=== PATIENT | male | born 1955 | race Hispanic/Latino ===

== ENCOUNTER 2019-12-11 12:49 | Day surgery (SDC) | payer OTHER ==
[2019-12-11] MEDS ORDERED: ceFAZolin/Water 2 GM/20 ML 2 GM/20 ML SYRINGE IV NR (14:00)
[2019-12-11] MEDS ORDERED: LACTATED RINGERS 1,000 ML IV SCH (14:00)
[2019-12-11] MEDS ORDERED: HYDROmorphone 1 MG/1 ML INJ IV PRN (14:20)
--- NOTE | 2019-12-11 14:23 | Anesthesia Day of Surgery ---
Anesthesia Day of Surgery - Day of Surgery Patient Examined: Yes Patient H&P Reviewed: Yes Patient is NPO: Yes Beta Blockers: Yes (12/10/19 PM)
--- NOTE | 2019-12-11 14:23 | Anesthesia Consultation ---
Anesthesia Consult and Med Hx Date of service: 12/11/19 - Airway Anesthetic Teeth Evaluation: Good ROM Head & Neck: Adequate (pinched nerve in neck which causes parasthesias in b/l arms w/ moderate extension.) Mental/Hyoid Distance: Adequate Mallampati Class: Class II Intubation Access Assessment: Probably Good - Pulmonary Exam CTA: Yes - Cardiac Exam Cardiac Exam: RRR - Pre-Operative Health Status ASA Pre-Surgery Classification: ASA3 Proposed Anesthetic Plan: General - Pulmonary Hx Smoking: Yes (former heavy smoker 3-4PPD. Quit >30yrs ago) Hx Respiratory Symptoms: Yes (COVID infection 04/2019 still w/ residual nonproductive cough.) SOB: No Home Oxygen Therapy: No - Cardiovascular System Hx Hypertension: No Hx Heart Attack/AMI: No Hx Percutaneous Transluminal Coronary Angioplasty (PTCA): No Hx Cardia Arrhythmia: No - Central Nervous System Hx Neuromuscular Disorder: Yes (paraplegia @ T12/L1.) CVA: No - Gastrointestinal Hx Gastroesophageal Reflux Disease: No - Endocrine Hx Renal Disease: No (renal stones) Hx Liver Disease: No Hx Insulin Dependent Diabetes: No Hx Non-Insulin Dependent Diabetes: No Hx Thyroid Disease: No - Other Systems Hx Obesity: No - Additional Comments Anesthesia Medical History Comments: No hx anesthetic complications.
[2019-12-11] MEDS ORDERED: MIDAZOLAM 2 MG/2 ML INJ IV NR (15:00)
[2019-12-11] MEDS ORDERED: LIDOCAINE MPF (2%) 20 MG/1 ML VIAL 5 ML ONE (15:56)
[2019-12-11] MEDS ORDERED: ONDANSETRON 4 MG/2 ML INJ ONE (15:56)
[2019-12-11] MEDS ORDERED: propofoL 200 MG/20 ML VIAL IV ONE (15:57)
[2019-12-11] MEDS ORDERED: fentaNYL 100 MCG/2 ML INJ ONE (15:57)
--- NOTE | 2019-12-11 16:04 | Post Operative Note ---
Date of procedure: 12/11/19 Pre-op diagnosis: florentinthongcrhistie hinson Post-op diagnosis: same (up j stone) Findings: as above Procedure: cysto laser bladder stent rpg Anesthesia: GETA Surgeon: JOSEFINA BOWEN Estimated blood loss: none Pathology: list (stones) Specimen disposition: given to patient/family Condition: stable Disposition: PACU
--- NOTE | 2019-12-11 16:05 | Discharge Summary ---
Short Stay Discharge Plan Activity: other (no straining ) Weight Bearing Status: Non-Weight Bearing Diet: low fat, low cholesterol, low salt Special Instructions: other (inc fluids ) Durable Medical Equipment Needed Upon Discharge: other (has beasley and stent ) Follow up with: [facility] [Primary Care Provider] - 7 Days JOSEFINA BOWEN MD [Staff Physician] - 7 Days
[2019-12-11] MEDS ORDERED: dexAMETHasone 20 MG/5 ML VIAL ONE (16:30)
[2019-12-11] MEDS ORDERED: PHENYLEPHRINE/NS 1,000 MCG/10 ML SYRINGE (OR USE) IV ONE (16:43)
--- NOTE | 2019-12-11 16:53 | Operative Report ---
PREOPERATIVE DIAGNOSES: Severe right hydronephrosis, right ureteropelvic junction stone, bladder stone. POSTOPERATIVE DIAGNOSES: Severe right hydronephrosis, right ureteropelvic junction stone, bladder stone. PROCEDURES: Cystoscopy, right retrograde, right double-J stent, cystolithopaxy with laser of bladder stone and insertion of [place] catheter. SURGEON: Dr. Giron. ANESTHESIA: General. FINDINGS: This is a gentleman with intermittent cath neurogenic bladder from spinal cord injury and paraplegia. He presents with increasing creatinine and evidence of stones. He has a severe obstruction on the right and bladder stones. DESCRIPTION OF PROCEDURE: The patient was brought to the operating room and placed on the operating table. Following induction of anesthesia, placed in lithotomy position, prepped and draped in usual sterile fashion. Retrograde showed the stone and we were able to get by the stone and placed a double-J stent. At this point, bladder stones were lasered and we evacuated all the fragments. The patient tolerated the procedure well and was brought to recovery room in stable condition and will be discharged on antibiotics. Follow up lithotripsy nuclear renal scan. JOB# [id number] BARBARA/ALISA
[2019-12-11] MEDS ORDERED: WATER FOR IRRIG STERILE 1,500 ML BOTTLE IR ONE (17:12)
[2019-12-11] MEDS ORDERED: WATER FOR IRRIG STERILE 2000 ML IR ONE (17:12)
--- NOTE | 2019-12-11 17:49 | Post Anesthesia Evaluation ---
- Post Anesthesia Evaluation Patient Participated: Yes Airway Patent: Yes Stable Respiratory Function: Yes Nausea/Vomiting: No Temp > 96.8F: Yes Pain Manageable: Yes Adequeate Hydration: Yes Anesthesia Complications: No
--- NOTE | 2019-12-11 18:07 | Fluoroscopy Report ---
CLINICAL INDICATION: BLADDER AND RIGHT KIDNEY STONES. TECHNICAL DATA: C-arm imaging was performed. Fluoroscopy time 1.03 minutes. 3 images obtained. FINDINGS: C-arm imaging was performed. Filling defects present right ureter secondary to a calculus on the retr ograde pyelogram. Final images demonstrate a double pigtail stent present right ureter. IMPRESSION: Stent placement right ureter Signer Name: Arsh Chiu MD Signed: 12/11/2019 6:02 PM Workstation Name: [id number]
[2019-12-11 18:51] VITALS: BP 126/67
== END 2019-12-11 18:34 | disposition home or self-care (01) ==
LOC: OR 12:49
PROVIDERS: ATTEND Urology
DX: N13.30 Unspecified hydronephrosis (principal); N21.0 Calculus in bladder; Z88.8 Allergy status to other drugs, medicaments and biological substances; Z79.899 Other long term (current) drug therapy; Z87.891 Personal history of nicotine dependence; Z98.890 Other specified postprocedural states
CPT/HCPCS: 52317; 52332; 74420; A4217; C1758; C1769; C2617; J1100; J1956; J2370; J2405; J2704; J3010; J7120; Q9967; J2250

== ENCOUNTER 2019-12-25 07:59 | Day surgery (SDC) | payer OTHER ==
--- NOTE | 2019-12-25 08:47 | Anesthesia Day of Surgery ---
Anesthesia Day of Surgery - Day of Surgery Patient Examined: Yes Patient H&P Reviewed: Yes Patient is NPO: Yes
--- NOTE | 2019-12-25 08:49 | Anesthesia Consultation ---
Anesthesia Consult and Med Hx Date of service: 12/25/19 - Airway Anesthetic Teeth Evaluation: Caps, Crowns ROM Head & Neck: Adequate Mental/Hyoid Distance: Adequate Mallampati Class: Class II Intubation Access Assessment: Probably Good - Pre-Operative Health Status ASA Pre-Surgery Classification: ASA3 Proposed Anesthetic Plan: General - Pulmonary Hx Smoking: Yes (former heavy smoker 3-4PPD. Quit >30yrs ago) Hx Asthma: No Hx Respiratory Symptoms: Yes (COVID infection 04/2019) SOB: No (Wheel chair bound) COPD: No Hx Pneumonia: No Hx Sleep Apnea: No (MAURI PRE SCREEN HIGH RISK) - Cardiovascular System Hx Hypertension: Yes Hx Heart Attack/AMI: No Hx Percutaneous Transluminal Coronary Angioplasty (PTCA): No Hx Cardia Arrhythmia: No Hx Pacemaker: No Hx Internal Defibrillator: No Hx Heart Murmur: No - Central Nervous System Hx Neuromuscular Disorder: Yes (paraplegia @ T12/L1.) Hx Seizures: No CVA: No Hx Back Pain: Yes (NECK STIFFNESS. Chronic pain ) Hx Psychiatric Problems: Yes - Gastrointestinal Hx Gastroesophageal Reflux Disease: Yes (occasional) - Endocrine Hx Renal Disease: Yes (renal stones) Hx End Stage Renal Disease: No Hx Cirrhosis: No Hx Liver Disease: No Hx Insulin Dependent Diabetes: No Hx Non-Insulin Dependent Diabetes: No Hx Thyroid Disease: No - Hematic Hx Anemia: Yes Hx Sickle Cell Disease: No - Other Systems Hx Alcohol Use: Yes (BEER,LIQUOR SHOT EACH NITE) Hx Substance Use: No Hx Cancer: No Hx Obesity: Yes
[2019-12-25] MEDS ORDERED: MORPHINE 2 MG/1 ML INJ IV SCH (09:00)
[2019-12-25] MEDS ORDERED: HYDROmorphone 1 MG/1 ML INJ IV PRN ×2 (09:00)
[2019-12-25] MEDS ORDERED: ONDANSETRON 4 MG/2 ML INJ IV PRN (09:00)
[2019-12-25] MEDS ORDERED: LACTATED RINGERS 1,000 ML IV SCH (09:00)
[2019-12-25] MEDS ORDERED: MIDAZOLAM 2 MG/2 ML INJ IV NR (09:00)
[2019-12-25] MEDS ORDERED: LIDOCAINE MPF (2%) 20 MG/1 ML VIAL 5 ML ONE (09:46)
[2019-12-25] MEDS ORDERED: ONDANSETRON 4 MG/2 ML INJ ONE (09:46)
[2019-12-25] MEDS ORDERED: fentaNYL 100 MCG/2 ML INJ ONE (09:47)
[2019-12-25] MEDS ORDERED: propofoL 200 MG/20 ML VIAL IV ONE (09:47)
[2019-12-25] MEDS ORDERED: ceFAZolin/STERILE WATER 2 GM/20 ML SYRINGE IV NR (10:00)
--- NOTE | 2019-12-25 10:06 | XRay Report ---
ABDOMEN 1 VIEW INDICATION / CLINICAL INFORMATION: BILATERAL KIDNEY STONES. COMPARISON: Fluoroscopic exam from 12/11/2019. FINDINGS: TUBES / LINES: Partially imaged right double-J ureteral stent projects in expected alignment. BOWEL GAS PATTERN: No significant abnormality. FREE AIR / EXTRALUMINAL GAS: None seen. ADDITIONAL FINDINGS: Lower pole left renal calculi. There are 2 additional calculi projecting along t he course of the right double-J ureteral stent, measuring up to 1 cm. Additional 5 calcification whic h projects along the course of the right ureter is noted to project lateral to the ureter on recent u rography study. Fixation rods in the spine without hardware complication. IMPRESSION: 1. 2 retained stones along the proximal portion of the right ureteral stent. 2. Left nephrolithiasis. No left-sided ureteral calculus identified. Signer Name: Rodriguez Fam MD Signed: 12/25/2019 10:01 AM Workstation Name: [id number]
--- NOTE | 2019-12-25 12:32 | Discharge Summary ---
Short Stay Discharge Plan Activity: other (no straining ) Weight Bearing Status: Full Weight Bearing Diet: regular Special Instructions: other (inc fluids ) Additional Instructions: INCREASE ORAL FLUIDS. AVOID STRAINING. STRAIN URINE. CALL FOR F/U APPT. Follow up with: [facility] [Primary Care Provider] - 7 Days JOSEFINA BOWEN MD [Staff Physician] - 7 Days Forms: Outpatient Surgery DC Inst.
--- NOTE | 2019-12-25 12:33 | Post Operative Note ---
Date of procedure: 12/25/19 Pre-op diagnosis: ureteral stone Post-op diagnosis: same Findings: as above Procedure: eswl Anesthesia: NIRAV Surgeon: JOSEFINA BOWEN Estimated blood loss: none Pathology: none Condition: stable Disposition: PACU
[2019-12-25 12:44] VITALS: BP 133/63
--- NOTE | 2019-12-25 14:45 | Operative Report ---
PREOPERATIVE DIAGNOSIS: Right upper ureteral stone. POSTOPERATIVE DIAGNOSIS: Right upper ureteral stone. PROCEDURE: Right lithotripsy. SURGEON: Dr. Giron. ANESTHESIA: General. FINDINGS: This is a gentleman who came in with a severe obstruction. Stent was placed. There was some debris and we just left the stent to let this calmed down. He has significant neurological issues with atonic bladder, now presents for lithotripsy. DESCRIPTION OF PROCEDURE: The patient was brought to the operating room and placed on the operating table. Following induction of anesthesia, the stone was easily localized along the stent. Shocks were begun at 1 kV just because there was a little bit of question whether the lower pole was in the shockwave path. We did a renal pause. We went up to 9 kV. There was some spreading out of the stone. The patient tolerated the procedure well. Total of 2500 shocks were given, brought to recovery in stable condition. JOB# [id number] BARBARA/ALISA
--- NOTE | 2019-12-25 16:01 | Post Anesthesia Evaluation ---
- Post Anesthesia Evaluation Patient Participated: Yes Airway Patent: Yes Stable Respiratory Function: Yes Nausea/Vomiting: No Temp > 96.8F: Yes Pain Manageable: Yes Adequeate Hydration: Yes Anesthesia Complications: No Block Receding Appropriately: Not Applicable Patient on Ventilator: No
== END 2019-12-25 13:15 | disposition home or self-care (01) ==
LOC: OR 07:59
PROVIDERS: ATTEND Urology
DX: N20.1 Calculus of ureter (principal); E78.00 Pure hypercholesterolemia, unspecified; I10 Essential (primary) hypertension; K21.9 Gastro-esophageal reflux disease without esophagitis; E66.9 Obesity, unspecified; M19.90 Unspecified osteoarthritis, unspecified site; F32.9 Major depressive disorder, single episode, unspecified; Z72.89 Other problems related to lifestyle; Z98.890 Other specified postprocedural states; Z87.891 Personal history of nicotine dependence; Z88.8 Allergy status to other drugs, medicaments and biological substances; Z79.899 Other long term (current) drug therapy; Z87.440 Personal history of urinary (tract) infections; Z68.21 Body mass index [BMI] 21.0-21.9, adult
CPT/HCPCS: 50590; 74018; J0690; J2250; J2270; J2405; J2704; J3010; J7120

== ENCOUNTER 2020-02-23 08:16 | Outpatient (CLI) | payer OTHER ==
[2020-02-23] MEDS ORDERED: FUROSEMIDE 20 MG/2 ML INJ ONE (08:46)
[2020-02-23] MEDS ORDERED: FUROSEMIDE 100 MG/10 ML INJ IV ONE (08:52)
[2020-02-23] MEDS ORDERED: FUROSEMIDE 20 MG/2 ML INJ IV ONE (09:00)
--- NOTE | 2020-02-23 10:19 | Nuclear Medicine Report ---
KIDNEY IMAGING MORPHOLOGY WITH VASCULAR FLOW AND FUNCTION, SINGLE STUDY WITH LASIX HISTORY: Hydronephrosis with renal and ureteral calculus COMPARISON: KUB dated 12/25/2019 TECHNIQUE: Following IV administration of Tc-99m-MAG3, sequential dynamic images of the kidneys were obtained in the posterior projection for 30 minutes. Following IV administration of Lasix, additiona l images were acquired for 20 minutes. Time activity whole kidney curves were analyzed. RADIOPHARMACEUTICAL: 5 mCi of Tc-99m-MAG3 MEDICATION: Lasix 20 mg iv at 21 minutes. FINDINGS: There is homogeneous distribution of the radiopharmaceutical within the renal cortex of each kidney. The right kidney appears slightly smaller than the left kidney with delayed uptake and delayed excret ion of the radiotracer compared to the left side. DIFFERENTIAL FUNCTION: Right: 23% Left: 77% RIGHT: Ywyd-wx-brnz activity: 25 minutes, prolonged T1/2: Out of range minutes, prolonged Ureter: No significantly abnormal activity. Normal caliber. Post-Lasix imaging: There is a blunted excretory response to Lasix. LEFT: Ajgm-ol-bgqk activity: 4 minutes, normal T1/2: 33 minutes, normal Ureter: No significantly abnormal activity. Normal caliber. Post-Lasix imaging: No significant abnormality in urinary excretion. Additional Findings: None. IMPRESSION: Split function is 77% left kidney and 23% right kidney. Delayed uptake and delayed excretion of the radiotracer on the right side is noted with a blunted res ponse to Lasix administration. Signer Name: Seng Burciaga Jr, MD Signed: 02/23/2020 10:15 AM Workstation Name: [id number]
--- NOTE | 2020-02-23 11:08 | XRay Report ---
ABDOMEN 1 VIEW INDICATION / CLINICAL INFORMATION: HYDRONEPHROSIS W/RENAL AND URETERAL CALCULOUS. COMPARISON: 12/25/2019. FINDINGS: TUBES / LINES: Right-sided JJ ureteral stent in stable position. BOWEL GAS PATTERN: No significant abnormality. FREE AIR / EXTRALUMINAL GAS: None seen. ADDITIONAL FINDINGS: 1.2 cm left renal calculus stable since prior exam. There has been significant d ecrease in size of the previously noted calcified stones along the ureteral stent in the proximal ure ter (previously 7 and 8 mm respectively) now both measuring approximately 3 mm. There is now a 7 mm s tone in the right pelvicalyceal system. Spinal hardware is stable. IMPRESSION: 1. Right JJ ureteral stent in stable position. 2. Bilateral calcified stone burden as described above. Signer Name: Rey Kirkland MD Signed: 02/23/2020 11:03 AM Workstation Name: [id number]
== END 2020-02-23 08:17 | disposition home or self-care (01) ==
LOC: NM 08:16
PROVIDERS: ATTEND Urology
DX: N13.2 Hydronephrosis with renal and ureteral calculous obstruction (principal)
CPT/HCPCS: 74018; 78708; 96374; A9562; J1940

== ENCOUNTER 2020-03-22 06:32 | Day surgery (SDC) | payer OTHER ==
[~2020-03-22 06:32] MED LIST: LACTATED RINGERS 1,000 ML IV SCH; MIDAZOLAM 2 MG/2 ML INJ IV NR
[2020-03-22] MEDS ORDERED: BACTERIOSTATIC SODIUM CHLORIDE 0.9% 30 ML VIAL INFILTRATI ONE (07:03)
[2020-03-22 07:28] LABS: Mean Corpuscular HGB Conc 34 % (32-34); Mean Corpuscular Volume 93 fl (84-94); Platelet Count 248 K/mm3 (140-440)
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
[2020-03-22] MEDS ORDERED: FAMOTIDINE 20 MG/2 ML INJ IV SCH (07:30)
--- NOTE | 2020-03-22 07:30 | Anesthesia Day of Surgery ---
Anesthesia Day of Surgery - Day of Surgery Patient Examined: Yes Patient H&P Reviewed: Yes Patient is NPO: Yes Beta Blockers: Yes (took Metoprolol yesterday)
[2020-03-22] MEDS ORDERED: ONDANSETRON 4 MG/2 ML INJ IV PRN (07:38)
[2020-03-22] MEDS ORDERED: fentaNYL 100 MCG/2 ML INJ IV PRN (08:00)
[2020-03-22 08:15] LABS: Blood Urea Nitrogen 15 mg/dL (9-20); Calcium 9.2 mg/dL (8.4-10.2); Hemolysis Index 7
[2020-03-22 08:29] LABS: BUN/Creatinine Ratio 21
[2020-03-22] MEDS ORDERED: PHENYLEPHRINE/NS 1,000 MCG/10 ML SYRINGE (OR USE) IV ONE (08:30)
[2020-03-22] MEDS ORDERED: LIDOCAINE MPF (2%) 20 MG/1 ML VIAL 5 ML ONE (08:30)
[2020-03-22] MEDS ORDERED: dexAMETHasone 20 MG/5 ML VIAL ONE (08:30)
[2020-03-22] MEDS ORDERED: fentaNYL 100 MCG/2 ML INJ ONE (08:30)
[2020-03-22] MEDS ORDERED: GLYCOPYRROLATE 0.4 MG/2 ML INJ ONE (08:30)
[2020-03-22] MEDS ORDERED: SUCCINYLCHOLINE CHLORIDE 200 MG/10 ML INJ MDV ONE (08:30)
[2020-03-22] MEDS ORDERED: propofoL 200 MG/20 ML VIAL IV ONE (08:30)
[2020-03-22] MEDS ORDERED: ONDANSETRON 4 MG/2 ML INJ ONE (08:30)
[2020-03-22] MEDS ORDERED: IOHEXOL 300 MG/ML 50ML IV ONE (10:10)
--- NOTE | 2020-03-22 10:34 | Fluoroscopy Report ---
FLUOROSCOPY RETROGRADE UROGRAPHY HISTORY: Stone and stent replacement FINDINGS: Fluoroscopy was provided by radiology during retrograde urography by the urologist. Right u reteroscopy was performed per the operative note. Laser was utilized on the right renal stone. A seco nd right double-J ureteral stent was placed as the first one could not be removed. Please correlate w ith the procedural report. Fluoroscopy time: 54 seconds Fluoroscopic images: 5 Signer Name: Seng Burciaga Jr, MD Signed: 03/22/2020 10:30 AM Workstation Name: [id number]
--- NOTE | 2020-03-22 11:32 | Post Operative Note ---
Date of procedure: 03/22/20 Pre-op diagnosis: stones retained stent Post-op diagnosis: same Findings: calcified stent Procedure: cystio laser rpg ureteroscpy j stent Anesthesia: MARJORIEA Surgeon: JOSEFINA BOWEN Pathology: list (stones) Specimen disposition: given to patient/family Condition: stable
--- NOTE | 2020-03-22 11:33 | Discharge Summary ---
Short Stay Discharge Plan Activity: other (no straining ) Weight Bearing Status: Full Weight Bearing Diet: low fat, low cholesterol, low salt Additional Instructions: INCREASE ORAL FLUIDS. Follow up with: [facility] [Primary Care Provider] - 7 Days JOSEFINA BOWEN MD [Staff Physician] - 7 Days Forms: Outpatient Surgery DC Inst.
--- NOTE | 2020-03-22 11:54 | Operative Report ---
PREOPERATIVE DIAGNOSES: Right ureteral stone, chronic hydronephrosis, poorly functioning right kidney, poorly compliant with retained stent. PREOPERATIVE DIAGNOSES: Right ureteral stone, chronic hydronephrosis, poorly functioning right kidney, poorly compliant with retained stent with a calcified stent. PROCEDURES: Cystoscopy, laser of stones and laser of stent, attempted to removal of stent retrograde with reinsertion of a second stent alongside. SURGEON: Dr. Giron. ANESTHESIA: General. FINDINGS: This is a gentleman who had a stone. We had blasted. It looked great. He had a stent in the kidney. He was supposed to come back 2 months ago. He never came back. He had a nuclear scan showed a 22% function hydronephrosis on the right. He now presents for treatment. DESCRIPTION OF PROCEDURE: The patient was brought to the operating room and placed on the operating table. Following induction of anesthesia, placed in lithotomy position, prepped and draped in usual sterile fashion. Stent was seen using the 500 micron fiber. The stent was freed of the surrounding calcification. We tried to pull it out in the urethra, but it would not uncoil in the kidney level. It looks like there may be some coating around the stent, would not allow it to uncoil. We tried wire alongside it and a stent alongside it, which was an open-ended, it would still not uncoil. The plan will be placing another stent either percutaneously to get the stent out or we will try to go from below after this sits for a while 1-2 weeks and do lithotripsy and then try to uncoil the stent to remove both of them. He has 22% function. I will explain it to him. We placed a Peterson, so that we would be sure he would follow up because he is not very compliant. He was brought to recovery in stable condition. No significant bleeding. No complications. JOB# [id number] BARBARA/ALISA
[2020-03-22 12:25] VITALS: BP 131/78
== END 2020-03-22 12:15 | disposition home or self-care (01) ==
LOC: OR 06:32
PROVIDERS: ATTEND Urology
DX: N13.2 Hydronephrosis with renal and ureteral calculous obstruction (principal); E78.00 Pure hypercholesterolemia, unspecified; I10 Essential (primary) hypertension; K21.9 Gastro-esophageal reflux disease without esophagitis; E66.9 Obesity, unspecified; M19.90 Unspecified osteoarthritis, unspecified site; F32.9 Major depressive disorder, single episode, unspecified; Z88.8 Allergy status to other drugs, medicaments and biological substances; Z79.899 Other long term (current) drug therapy; Z87.891 Personal history of nicotine dependence; Z87.440 Personal history of urinary (tract) infections; Z72.89 Other problems related to lifestyle; Z98.890 Other specified postprocedural states
CPT/HCPCS: 36415; 52356; 74420; 80048; 85027; C1758; C1769; C2617; J0330; J1100; J1956; J2250; J2370; J2405; J2704; J3010; J7120; Q9967

== ENCOUNTER 2020-03-25 10:58 | Day surgery (SDC) | payer OTHER ==
[2020-03-25] MEDS ORDERED: dexAMETHasone 20 MG/5 ML VIAL ONE ×2 (13:04→14:33)
[2020-03-25] MEDS ORDERED: LIDOCAINE MPF (2%) 20 MG/1 ML VIAL 5 ML ONE (13:04)
[2020-03-25] MEDS ORDERED: fentaNYL 100 MCG/2 ML INJ ONE ×2 (13:05→15:23)
[2020-03-25] MEDS ORDERED: propofoL 200 MG/20 ML VIAL IV ONE (13:05)
--- NOTE | 2020-03-25 13:55 | Anesthesia Day of Surgery ---
Anesthesia Day of Surgery - Day of Surgery Patient Examined: Yes Patient H&P Reviewed: Yes Patient is NPO: Yes
--- NOTE | 2020-03-25 13:55 | Anesthesia Consultation ---
Anesthesia Consult and Med Hx Date of service: 03/25/20 - Airway Anesthetic Teeth Evaluation: Good ROM Head & Neck: Adequate Mental/Hyoid Distance: Adequate Mallampati Class: Class II Intubation Access Assessment: Probably Good - Pulmonary Exam CTA: Yes - Cardiac Exam Cardiac Exam: RRR - Pre-Operative Health Status ASA Pre-Surgery Classification: ASA3 Proposed Anesthetic Plan: General - Pulmonary Hx Smoking: Yes (former heavy smoker 3-4PPD. Quit >30yrs ago) Hx Sleep Apnea: No (MAURI PRE SCREEN HIGH RISK) - Cardiovascular System Hx Hypertension: Yes Hx Heart Attack/AMI: No - Central Nervous System Hx Neuromuscular Disorder: Yes (paraplegia @ T12/L1.) CVA: No Hx Back Pain: Yes (NECK STIFFNESS. Chronic pain ) Hx Psychiatric Problems: Yes - Gastrointestinal Hx Gastroesophageal Reflux Disease: Yes (occasional) - Endocrine Hx Renal Disease: Yes (CKD) Hx Liver Disease: No Hx Insulin Dependent Diabetes: No Hx Non-Insulin Dependent Diabetes: No Hx Thyroid Disease: No - Hematic Hx Anemia: Yes - Additional Comments Anesthesia Medical History Comments: Had cystoscopy at [facility] under [place] on 03/22/20 without complications.
[2020-03-25] MEDS ORDERED: GENTAMICIN/NS 80 MG/100 ML 100 ML IV ONE (14:24)
[2020-03-25] MEDS ORDERED: ONDANSETRON 4 MG/2 ML INJ ONE (14:32)
[2020-03-25] MEDS ORDERED: WATER FOR IRRIG STERILE 1,500 ML BOTTLE IR ONE (14:37)
[2020-03-25] MEDS ORDERED: WATER FOR IRRIG STERILE 2000 ML IR ONE (14:37)
[2020-03-25] MEDS ORDERED: IOHEXOL 300 MG/ML 50ML IV ONE (14:54)
--- NOTE | 2020-03-25 16:07 | Short Stay Summary ---
Short Stay Documentation Date of service: 03/25/20 - History H&P: obtained from office - Allergies and Medications Current Medications: Allergies ceftriaxone [From Rocephin] Allergy (Verified 03/22/20 08:37) Rash oxycodone [From Percocet] Adverse Reaction (Verified 03/22/20 08:37) HAS FLU-LIKE SYMPTOMS, NAUSEA Home Medications Medication Instructions Recorded Confirmed Last Taken Type AtorvaSTATin [Lipitor] 40 mg PO QHS 12/11/19 03/24/20 03/24/20 History C/Sourcherry/Celery/Grape Seed 1 each PO QDAY 12/11/19 03/24/20 03/24/20 History [Tart Florian Capsule] Calcium Carbonate/Vitamin D3 1 each PO QDAY 12/11/19 03/24/20 03/24/20 History [Calcium 600-Vit D3 400 Tablet] Gabapentin 600 mg PO BID 12/11/19 03/24/20 03/24/20 History Glucosam/Chondr/Collagn/Hyalur 1 each PO QDAY 12/11/19 03/24/20 03/24/20 History [Glucosamine & Chondroitin Cap] Metoprolol [Lopressor] 12.5 mg PO QHS 12/11/19 03/24/20 03/24/20 History Naproxen [Naprosyn] 500 mg PO BID 12/11/19 03/25/20 03/01/20 08:00 History Oxybutynin [Ditropan] 5 mg PO TID 12/11/19 03/24/20 03/24/20 History traMADoL [Ultram] 50 mg PO PRN PRN 12/11/19 03/24/20 03/24/20 History Tylenol 1 tab PO PRN PRN 12/18/19 03/24/20 03/24/20 History Gabapentin [Neurontin] 900 mg PO QHS 03/16/20 03/24/20 03/24/20 History DULoxetine [Cymbalta] 20 mg PO QHS 03/17/20 03/24/20 03/24/20 History Active Medications Lactated Ringer's (Lactated Ringers) 1,000 mls @ 100 mls/hr IV DIRECT JUAN Stop: 03/25/20 23:59 Last Admin: 03/25/20 12:20 Dose: 100 mls/hr Documented by: Midazolam HCl (Midazolam 2 Mg/2 Ml Inj) 2 mg IV PREOP NR Stop: 03/25/20 23:59 Last Admin: 03/25/20 14:03 Dose: 2 mg Documented by: - Brief post op/procedure progress note Date of procedure: 03/25/20 Pre-op diagnosis: retained stent with stone--right Post-op diagnosis: same Procedure: rt ESWL, cysto, ureteroscopy, stent exchange Anesthesia: GETA Surgeon: LAKESHA CORONADO Pathology: none Condition: stable - Hospital course Hospital course: macrobid on chart, naproxen at home - Disposition Condition at discharge: Stable Disposition: DC-01 TO HOME OR SELFCARE Short Stay Discharge Plan Follow up with: [facility] [Primary Care Provider] - 7 Days
--- NOTE | 2020-03-25 16:12 | XRay Report ---
XR abdomen 1V ap INDICATION / CLINICAL INFORMATION: CYSTO, STENT EXCHANGE. COMPARISON: None available. FINDINGS: Right ureteral stent exchange Fluoroscopy time: 11 seconds. Fluoroscopic images: 3. IMPRESSION: 1. Right ureteral stent exchange Signer Name: Micky Ashton MD FACR Signed: 03/25/2020 4:08 PM Workstation Name: [id number]
--- NOTE | 2020-03-25 16:30 | Operative Report ---
PREOPERATIVE DIAGNOSIS: Right retained stent with encrustation. POSTOPERATIVE DIAGNOSIS: Right retained stent with encrustation. PROCEDURE: Extracorporal shock wave lithotripsy of stent and stone, right ureteroscopy, stent exchange with external string (6-Turkmen 24). SURGEON: Jalil Cardona MD ANESTHESIA: General. ESTIMATED BLOOD LOSS: Minimal. FLUIDS: Crystalloid. COMPLICATIONS: No complications. INDICATIONS: This patient is a 64-year-old gentleman, patient of Dr. Giron, who had a stone in 12/2019, underwent stent lithotripsy. He was lost to followup. Earlier this month, attempts to remove the stent were unsuccessful due to encrustation. He does have 2 stents now due to that manipulation recently. He presents now for lithotripsy of the stent and removal. He is paraplegic. DESCRIPTION OF THE PROCEDURE: The patient was taken to the operative suite and after adequate general anesthesia, placed in the supine position. The lower stent, which is the retained stent for several months, the J was identified. Extracorporal shock wave lithotripsy at 7 kV at 2500 shocks. Shocks were distributed around the J, 5-minute renal pause after 200 shocks. At that point, the patient was then taken to the cystoscopy suite, placed in a dorsal lithotomy position, prepped and draped in a sterile fashion. Cystourethroscopy was performed. The new stent was pulled out to the meatus. A 0.035 Glidewire was placed under fluoroscopic guidance for control. Multiple attempts to remove, it stent that was still somewhat encrusted. Rigid ureteroscopy up to the proximal ureter could see some calcification still on the stent; however, now it began to have some movement. The ureteroscope was removed. I pulled on the stent again and it came free. Still some small stone fragments on the stent. A 6-Turkmen 24 cm double-J stent with an external string was left indwelling. Rectal exam was benign, removed some of the stones, which were sent for analysis. Rectal exam was benign. He was extubated and taken to recovery room in stable condition. His states he takes naproxen for pain and he will have some Macrobid. JOB# [id number] [facility]
[2020-03-25 16:57] VITALS: BP 136/77
== END 2020-03-25 17:15 | disposition home or self-care (01) ==
LOC: OR 10:58
PROVIDERS: ATTEND Urology
DX: N13.2 Hydronephrosis with renal and ureteral calculous obstruction (principal); T83.192A Other mechanical complication of indwelling ureteral stent, initial encounter; E78.00 Pure hypercholesterolemia, unspecified; I10 Essential (primary) hypertension; K21.9 Gastro-esophageal reflux disease without esophagitis; E66.9 Obesity, unspecified; M19.90 Unspecified osteoarthritis, unspecified site; F32.9 Major depressive disorder, single episode, unspecified; D64.9 Anemia, unspecified; Z88.8 Allergy status to other drugs, medicaments and biological substances; Z79.899 Other long term (current) drug therapy; Z87.891 Personal history of nicotine dependence; Z72.89 Other problems related to lifestyle; Z98.890 Other specified postprocedural states; Y92.89 Other specified places as the place of occurrence of the external cause; Y82.8 Other medical devices associated with adverse incidents
CPT/HCPCS: 50590; 52332; 52351; 74018; A4217; C1758; C1769; C2617; J1100; J1580; J2250; J2405; J2704; J3010; J7120

== ENCOUNTER 2020-12-15 13:01 | Day surgery (SDC) | payer OTHER ==
[2020-12-15] MEDS ORDERED: HYDROmorphone 1 MG/1 ML INJ IV PRN (14:01)
[2020-12-15] MEDS ORDERED: HYDROcodone/ACETAMINOPHEN 5-325 MG TAB PO PRN (14:01)
[2020-12-15] MEDS ORDERED: ONDANSETRON 4 MG/2 ML INJ IV PRN (14:01)
--- NOTE | 2020-12-15 14:01 | Anesthesia Day of Surgery ---
Anesthesia Day of Surgery - Day of Surgery Patient Examined: Yes Patient H&P Reviewed: Yes Patient is NPO: Yes
--- NOTE | 2020-12-15 14:01 | Anesthesia Consultation ---
Anesthesia Consult and Med Hx Date of service: 12/15/20 - Airway Anesthetic Teeth Evaluation: Good ROM Head & Neck: Adequate Mental/Hyoid Distance: Adequate Mallampati Class: Class II Intubation Access Assessment: Probably Good (previous LMA 4 and 5) - Pre-Operative Health Status ASA Pre-Surgery Classification: ASA3 Proposed Anesthetic Plan: General - Pulmonary Hx Smoking: Yes (former heavy smoker 3-4PPD. Quit >30yrs ago) Hx Respiratory Symptoms: No Hx Sleep Apnea: No (MAURI PRE SCREEN HIGH RISK) - Cardiovascular System Hx Hypertension: Yes (took metoprolol last night) Hx Heart Attack/AMI: No Hx Percutaneous Transluminal Coronary Angioplasty (PTCA): No Hx Cardia Arrhythmia: No - Central Nervous System Hx Neuromuscular Disorder: Yes (spinal injury @ T12/L1.) CVA: No Hx Back Pain: Yes (chronic back pain) - Endocrine Hx Renal Disease: No Hx Liver Disease: No Hx Insulin Dependent Diabetes: No Hx Non-Insulin Dependent Diabetes: No Hx Thyroid Disease: No - Other Systems Hx Obesity: No - Additional Comments Anesthesia Medical History Comments: Has had multiple urology procedures under [place] at this facility without anesthetic complications.
[2020-12-15] MEDS ORDERED: ceFAZolin/Water 2 GM/20 ML 2 GM/20 ML SYRINGE IV ONE (14:17)
[2020-12-15] MEDS ORDERED: ceFAZolin/STERILE WATER 2 GM/20 ML SYRINGE IV NR (15:00)
[2020-12-15] MEDS ORDERED: propofoL 200 MG/20 ML VIAL IV ONE (15:22)
[2020-12-15] MEDS ORDERED: LIDOCAINE MPF (2%) 20 MG/1 ML VIAL 5 ML ONE (15:22)
[2020-12-15] MEDS ORDERED: HYDROmorphone 1 MG/1 ML INJ ONE (15:22)
--- NOTE | 2020-12-15 15:22 | Post Operative Note ---
Pre-op diagnosis: r ureteral stone Post-op diagnosis: same Findings: as above Procedure: cysto rpg stent ureteroscopy Anesthesia: GETA Surgeon: JOSEFINA BOWEN Estimated blood loss: none Condition: stable Disposition: PACU
--- NOTE | 2020-12-15 15:25 | Discharge Summary ---
Short Stay Discharge Plan Activity: other (no straining ) Weight Bearing Status: Full Weight Bearing Diet: low fat Durable Medical Equipment Needed Upon Discharge: other (has j stent !!) Follow up with: [facility] [Primary Care Provider] - 7 Days
[2020-12-15] MEDS ORDERED: GENTAMICIN/NS 80 MG/100 ML 100 ML IV ONE (16:22)
[2020-12-15] MEDS ORDERED: GENTAMICIN 40 MG/ML VIAL 2 ML ONE (16:23)
[2020-12-15] MEDS ORDERED: ONDANSETRON 4 MG/2 ML INJ ONE (17:00)
[2020-12-15] MEDS ORDERED: WATER FOR IRRIG STERILE 2000 ML IR ONE (17:00)
[2020-12-15] MEDS ORDERED: MINERAL OIL/PETROLATUM, WHITE OPHTH OINT 3.5 GM OU PRN (17:26)
--- NOTE | 2020-12-15 17:52 | Operative Report ---
DATE OF SURGERY: 12/15/2020 PREOPERATIVE DIAGNOSES: 1. Right hydronephrosis. 2. Right 7 mm obstructing stone. 3. Pyuria. POSTOPERATIVE DIAGNOSES: 1. Right hydronephrosis. 2. Right 7 mm obstructing stone. 3. Pyuria. PROCEDURES: Cystoscopy, right retrograde flexible ureteroscopy. SURGEON: Dr. Giron. ANESTHESIA: General. FINDINGS: This is a gentleman who is a paraplegic with clean intermittent catheterization and now presents with right hydronephrosis and obstructing 7 mm stone. DESCRIPTION OF PROCEDURE: The patient was brought to the operating room and placed on the operating table. Following induction of anesthesia, placed in lithotomy position, prepped and draped in usual sterile fashion. He was given Ancef and gentamicin. Retrograde showed moderate hydronephrosis. It looked like the stone was now in the renal pelvis. We placed a wire in the kidney. We had to wait for the second ureteroscope as the first one had some grooves on it that would not pass easily. The second one just passed without any pressure and then we emptied the renal pelvis, approximately 40 mL was in the renal pelvis, which was not cloudy. The bladder urine was cloudy from the catheterization and the urethra was quite tight, so we used the 20-Ethiopian sheath. At this point, the stone was seen, but the patient's breathing was so intense and the tidal volumes that we could not get a good shot at the stone in this very dilated renal pelvis. Therefore, we placed a 7-Ethiopian double J. We did not want to over distend the renal pelvis. The patient tolerated the procedure well. He will need to be paralyzed at the next time and have a tube, so we can control his tidal volumes. At this point, it is probably safer. The ureter was quite tight and the urethra was tight, so we left the Peterson and a double-J stent, 7-Ethiopian 24, brought to recovery in stable condition. Plan will be second stage ureteroscopy within the next 2 to 3 weeks. TID: [id number] RECEIPT: [id number] BARBARA/MARIVEL
[2020-12-15 19:02] VITALS: BP 117/72
== END 2020-12-15 18:30 | disposition home or self-care (01) ==
LOC: OR 13:01
PROVIDERS: ATTEND Urology
DX: N13.2 Hydronephrosis with renal and ureteral calculous obstruction (principal); R82.81 Pyuria; I10 Essential (primary) hypertension; G89.29 Other chronic pain; M19.90 Unspecified osteoarthritis, unspecified site; Z87.440 Personal history of urinary (tract) infections; Z87.891 Personal history of nicotine dependence; Z79.899 Other long term (current) drug therapy; Z88.8 Allergy status to other drugs, medicaments and biological substances; Z98.890 Other specified postprocedural states
CPT/HCPCS: 52332; 74430; A4217; C1726; C1758; C1769; C2617; J0690; J1170; J1580; J2250; J2405; J2704; J7120; Q9967

== ENCOUNTER 2021-01-10 07:31 | Day surgery (SDC) | payer OTHER ==
[2021-01-05 10:08] LABS: Hematocrit 40.4 % (35.5-45.6); Hemoglobin 13.4 gm/dl (11.8-15.2); Mean Corpuscular HGB Conc 33 % (32-34); Mean Corpuscular Volume 94 fl (84-94); Platelet Count 239 K/mm3 (140-440); Red Cell Distribution Width 13.5 % (13.2-15.2)
[2021-01-05 10:14] LABS: Alanine Aminotransferase 38 units/L (7-56); Albumin 4.1 g/dL (3.9-5); BUN/Creatinine Ratio 16; Blood Urea Nitrogen 14 mg/dL (9-20); Calcium 9.3 mg/dL (8.4-10.2); Hemolysis Index 9
[2021-01-10] MEDS ORDERED: ceFAZolin/Water 2 GM/20 ML 2 GM/20 ML SYRINGE IV ONE (07:57)
[2021-01-10] MEDS ORDERED: LIDOCAINE MPF (2%) 20 MG/1 ML VIAL 5 ML ONE (07:59)
[2021-01-10] MEDS ORDERED: propofoL 200 MG/20 ML VIAL IV ONE (08:00)
[2021-01-10] MEDS ORDERED: fentaNYL 100 MCG/2 ML INJ ONE (08:00)
[2021-01-10] MEDS ORDERED: KETAMINE/STERILE WATER 50 MG/ML SYRINGE ONE (08:02)
[2021-01-10] MEDS ORDERED: dexAMETHasone 20 MG/5 ML VIAL ONE (08:02)
[2021-01-10] MEDS ORDERED: ONDANSETRON 4 MG/2 ML INJ ONE (08:02)
--- NOTE | 2021-01-10 08:19 | Anesthesia Consultation ---
Anesthesia Consult and Med Hx Date of service: 01/10/21 - Airway Anesthetic Teeth Evaluation: Good ROM Head & Neck: Adequate Mental/Hyoid Distance: Adequate Mallampati Class: Class II Intubation Access Assessment: Probably Good (previous LMAs 4/5) - Pre-Operative Health Status ASA Pre-Surgery Classification: ASA3 Proposed Anesthetic Plan: General - Pulmonary Hx Smoking: Yes (former heavy smoker 3-4PPD. Quit >30yrs ago) Hx Respiratory Symptoms: No Hx Sleep Apnea: No (MAURI PRE SCREEN HIGH RISK) - Cardiovascular System Hx Hypertension: Yes Hx Heart Attack/AMI: No Hx Percutaneous Transluminal Coronary Angioplasty (PTCA): No - Central Nervous System Hx Neuromuscular Disorder: Yes (spinal injury @ T12/L1.) CVA: No Hx Back Pain: Yes (chronic) Hx Psychiatric Problems: Yes - Gastrointestinal Hx Gastroesophageal Reflux Disease: Yes (occasional) - Endocrine Hx Renal Disease: No Hx Liver Disease: No Hx Insulin Dependent Diabetes: No Hx Non-Insulin Dependent Diabetes: No Hx Thyroid Disease: No - Other Systems Hx Obesity: No - Additional Comments Anesthesia Medical History Comments: No hx anesthetic complications.
--- NOTE | 2021-01-10 08:19 | Anesthesia Day of Surgery ---
Anesthesia Day of Surgery - Day of Surgery Patient Examined: Yes Patient H&P Reviewed: Yes Patient is NPO: Yes
[2021-01-10] MEDS ORDERED: HYDROmorphone 1 MG/1 ML INJ IV PRN (09:00)
[2021-01-10] MEDS ORDERED: ONDANSETRON 4 MG/2 ML INJ IV PRN (09:00)
[2021-01-10] MEDS ORDERED: ePHEDrine SULFATE 50 MG/1 ML INJ ONE (10:03)
[2021-01-10] MEDS ORDERED: LACTATED RINGERS 1,000 ML ONE (10:16)
[2021-01-10] MEDS ORDERED: WATER FOR IRRIG STERILE 2000 ML IR ONE (10:45)
--- NOTE | 2021-01-10 11:06 | Post Operative Note ---
Date of procedure: 01/10/21 Pre-op diagnosis: r upj and stones Post-op diagnosis: same Findings: upj and debris and gravel Procedure: r ureteroscopy laserr juan Anesthesia: GETA Surgeon: JOSEFINA BOWEN Estimated blood loss: none Pathology: none Condition: stable Disposition: PACU
--- NOTE | 2021-01-10 11:07 | Discharge Summary ---
Short Stay Discharge Plan Activity: other (no straining ) Weight Bearing Status: Partial Weight Bearing Diet: regular, low fat Durable Medical Equipment Needed Upon Discharge: other (home with j stent and beasley ) Follow up with: [facility] [Primary Care Provider] - 7 Days
--- NOTE | 2021-01-10 12:55 | Operative Report ---
DATE OF SURGERY: 01/10/2021 PREOPERATIVE DIAGNOSES: Right UPJ narrowing, urethral stricture disease, neurogenic bladder and recurrent stones. POSTOPERATIVE DIAGNOSES: Right UPJ narrowing, urethral stricture disease, neurogenic bladder and recurrent stones. PROCEDURE: Cystoscopy, right ureteroscopy, laser of stone and a double-J stent exchange. SURGEON: Raghu Giron MD ANESTHESIA: General. FINDINGS: This is a gentleman with a double-J stent, large stone. Last time, he had lots of debris in the kidney. We did not feel comfortable inflating the kidney. A double-J was left. He now presents for second staged procedure. DESCRIPTION OF PROCEDURE: The patient was brought to the operating room and placed on the operating table. Following induction of anesthesia, placed in lithotomy position, prepped and draped in usual sterile fashion. 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 Prostatic urethra was normal. Bladder neck was open. The double-J was withdrawn and a wire coiled up in the kidney. Flexible ureteroscopy showed some debris and small stones, which were lasered. The patient tolerated the procedure well. A 7-Moldovan double-J was placed and we dilated the urethra to 20-Moldovan and placed an 18 Councill. The patient tolerated the procedure well and brought to recovery room in stable condition. TID: [id number] RECEIPT: BARBARA/JOHN/CHADD
[2021-01-10 13:01] VITALS: BP 124/45
--- NOTE | 2021-01-10 13:25 | Fluoroscopy Report ---
INTRAOPERATIVE FLUOROSCOPY INDICATION / CLINICAL INFORMATION: RT RENAL STONE. TECHNIQUE: Intraoperative spot images were obtained during the procedure. FINDINGS: Intraoperative fluoroscopy images See operative/procedure note by performing physician for full details. Fluoroscopy Time: 2 min and 2 seconds. Fluoroscopy Images: 5. Signer Name: Salinas Snyder MD Signed: 01/10/2021 1:20 PM Workstation Name: [email or web address]
== END 2021-01-10 07:32 | disposition home or self-care (01) ==
LOC: OR 07:31
PROVIDERS: ATTEND Urology
DX: N13.2 Hydronephrosis with renal and ureteral calculous obstruction (principal); K21.9 Gastro-esophageal reflux disease without esophagitis; E78.00 Pure hypercholesterolemia, unspecified; M19.90 Unspecified osteoarthritis, unspecified site; F32.9 Major depressive disorder, single episode, unspecified; Z87.891 Personal history of nicotine dependence; Z79.899 Other long term (current) drug therapy; Z88.1 Allergy status to other antibiotic agents; Z88.8 Allergy status to other drugs, medicaments and biological substances; Z98.890 Other specified postprocedural states; Z20.822 Contact with and (suspected) exposure to COVID-19
CPT/HCPCS: 36415; 52356; 74420; 80053; 85027; C1726; C1758; C1769; C2617; J0690; J1100; J1956; J2250; J2405; J2704; J3010; J3490; J7120; Q9967; U0003

== ENCOUNTER 2021-02-24 07:42 | Day surgery (SDC) | payer OTHER ==
[~2021-02-24 07:42] MED LIST changes: +FAMOTIDINE 20 MG/2 ML INJ IV NR; -LACTATED RINGERS 1,000 ML IV SCH
[2021-02-24] MEDS ORDERED: LACTATED RINGERS 1,000 ML ONE (07:59)
--- NOTE | 2021-02-24 08:22 | Anesthesia Consultation ---
Anesthesia Consult and Med Hx Date of service: 02/24/21 - Airway Anesthetic Teeth Evaluation: Good ROM Head & Neck: Adequate Mental/Hyoid Distance: Adequate Mallampati Class: Class II Intubation Access Assessment: Probably Good - Pre-Operative Health Status ASA Pre-Surgery Classification: ASA3 Proposed Anesthetic Plan: General - Pulmonary Hx Smoking: Yes (former heavy smoker 3-4PPD. Quit >30yrs ago) Hx Asthma: No Hx Respiratory Symptoms: No COPD: No Hx Pneumonia: No Hx Sleep Apnea: No (MAURI PRE SCREEN HIGH RISK) - Cardiovascular System Hx Hypertension: Yes Hx Heart Attack/AMI: No Hx Percutaneous Transluminal Coronary Angioplasty (PTCA): No Hx Cardia Arrhythmia: No Hx Pacemaker: No Hx Internal Defibrillator: No Hx Heart Murmur: No - Central Nervous System Hx Neuromuscular Disorder: Yes (spinal injury @ T12/L1.) Hx Seizures: No CVA: No Hx Back Pain: Yes (CHRONIC NECK AND BACK PAIN) Hx Psychiatric Problems: Yes - Gastrointestinal Hx Gastroesophageal Reflux Disease: Yes (occasional) - Endocrine Hx Renal Disease: No Hx End Stage Renal Disease: No Hx Cirrhosis: No Hx Liver Disease: No Hx Insulin Dependent Diabetes: No Hx Non-Insulin Dependent Diabetes: No Hx Thyroid Disease: No - Hematic Hx Anemia: Yes Hx Sickle Cell Disease: No - Other Systems Hx Alcohol Use: Yes (BEER,LIQUOR SHOT EACH NIGHT) Hx Substance Use: No Hx Cancer: No Hx Obesity: No
--- NOTE | 2021-02-24 08:22 | Anesthesia Day of Surgery ---
Anesthesia Day of Surgery - Day of Surgery Patient Examined: Yes Patient H&P Reviewed: Yes Patient is NPO: Yes
[2021-02-24] MEDS ORDERED: FAMOTIDINE 20 MG/2 ML INJ IV ONE (08:25)
[2021-02-24] MEDS ORDERED: HYDROmorphone 1 MG/1 ML INJ ONE (08:29)
[2021-02-24] MEDS ORDERED: propofoL 200 MG/20 ML VIAL IV ONE (08:30)
[2021-02-24] MEDS ORDERED: LACTATED RINGERS 1,000 ML IV SCH (08:30)
[2021-02-24] MEDS ORDERED: LIDOCAINE MPF (2%) 20 MG/1 ML VIAL 5 ML ONE (08:31)
[2021-02-24] MEDS ORDERED: PHENYLEPHRINE/NS 1,000 MCG/10 ML SYRINGE (OR USE) IV ONE (09:20)
--- NOTE | 2021-02-24 09:30 | Post Operative Note ---
Date of procedure: 02/24/21 Pre-op diagnosis: r stone Post-op diagnosis: same Findings: same Procedure: r eswl Anesthesia: NIRAV Surgeon: JOSEFINA BOWEN Estimated blood loss: none Pathology: none Condition: stable Disposition: PACU
--- NOTE | 2021-02-24 09:31 | Discharge Summary ---
Short Stay Discharge Plan Activity: other (no srtraining ) Weight Bearing Status: Full Weight Bearing Diet: regular, low fat, low cholesterol, low salt Special Instructions: other (inc fluids ) Follow up with: [facility] [Primary Care Provider] - 7 Days JOSEFINA BOWEN MD [Staff Physician] - 10 Days
[2021-02-24] MEDS ORDERED: ONDANSETRON 4 MG/2 ML INJ ONE (09:50)
--- NOTE | 2021-02-24 09:56 | Operative Report ---
DATE OF SURGERY: 02/24/2021 PREOPERATIVE DIAGNOSES: Right transposed ureteral stone, right kidney stone with double-J stents. POSTOPERATIVE DIAGNOSES: Right transposed ureteral stone, right kidney stone with double-J stents. PROCEDURES: Right lithotripsy. SURGEON: Dr. Giron. ANESTHESIA: General. FINDINGS: This is a gentleman with a 6-7 mm stone now in the lower pole of the right kidney and a smaller one in the mid pole with the double J. He now presents for treatment. DESCRIPTION OF PROCEDURE: The patient was brought to the operating table. Following induction of anesthesia, stone was easily localized both the AP and oblique image. Shocks were begun at 1 kV, increased to maximum of 7 kV. Total of 2500 shocks were given to the stone. The patient tolerated the procedure well. Excellent fragmentation was achieved, brought to recovery in stable condition. He knows he has a stent and he has to get it out within the next 10 days. TID: [id number] RECEIPT: [id number] BARBARA/JEANETTE
[2021-02-24 11:39] VITALS: BP 111/64
== END 2021-02-24 11:00 | disposition home or self-care (01) ==
LOC: OR 07:42
PROVIDERS: ATTEND Urology
DX: N13.2 Hydronephrosis with renal and ureteral calculous obstruction (principal); Z20.822 Contact with and (suspected) exposure to COVID-19; I10 Essential (primary) hypertension; M19.90 Unspecified osteoarthritis, unspecified site; K21.9 Gastro-esophageal reflux disease without esophagitis; Z87.891 Personal history of nicotine dependence; Z87.440 Personal history of urinary (tract) infections; Z88.8 Allergy status to other drugs, medicaments and biological substances; Z79.899 Other long term (current) drug therapy; Z98.890 Other specified postprocedural states
CPT/HCPCS: 50590; J1170; J1956; J2250; J2370; J2405; J2704; J3490; J7120; U0003